=== PATIENT | male | born 1945 | race Caucasian/White ===

== ENCOUNTER 2020-04-28 16:24 | Emergency (ER) | payer OTHER, MEDICARE ==
[~2020-04-28] VITALS: Ht 175.3 cm; Wt 86.0 kg
[2020-04-28 16:31] VITALS: BP 165/82
== END 2020-04-28 18:38 | disposition left against medical advice (07) ==
LOC: ER 16:24
DX: R06.03 Acute respiratory distress (principal)
CPT/HCPCS: 93005; 99283